=== PATIENT | male | born 2000 | race Caucasian/White ===

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

== ENCOUNTER 2022-11-02 11:17 | Emergency (ER) | payer OTHER, MEDICAID ==
[~2022-11-02] VITALS: Ht 167.6 cm; Wt 63.6 kg
[~2022-11-02 11:17] MED LIST changes: +BENADRYL ALLERG25 MG PO; +CETIRIZINE10 MG PO; +ELIDEL1 % EX; +MEDDOSEPAK PO; +PEPCID20 MG PO
[2022-11-02 11:40] VITALS: BP 121/69
[2022-11-02 11:45] VITALS: BP 118/73
[2022-11-02 12:00] VITALS: BP 106/63
[2022-11-02 12:15] VITALS: BP 110/60
[2022-11-02] MEDS ORDERED: MAXITROL 0.1 %1 SUS OD (12:25)
[2022-11-02 12:30] VITALS: BP 113/67
[2022-11-02 12:44] VITALS: BP 113/67
== END 2022-11-02 12:44 | disposition home or self-care (01) | DRG 125 ==
LOC: ED 11:17
DX: S05.01XA Injury of conjunctiva and corneal abrasion without foreign body, right eye, initial encounter (principal); X58.XXXA Exposure to other specified factors, initial encounter